=== PATIENT | female | born 1960 | race African-American/Black ===

== ENCOUNTER → 2018-06-30 | Outpatient (CLI) | payer MEDICARE, MEDICAID | END | disposition home or self-care (01) | LOC: US 08:27 | PROVIDERS: ATTEND Internal Medicine Gastroenterology | DX: N28.1 Cyst of kidney, acquired (principal) | CPT/HCPCS: 76700 ==

== ENCOUNTER 2020-02-04 05:22 | Inpatient (IN) | payer MEDICARE, MEDICAID ==
[~2020-02-04] VITALS: Ht 167.6 cm; Wt 85.3 kg
[2020-02-04] VITALS (34 sets, daily range): BP systolic 83–124; BP diastolic 36–87
[~2020-02-04 05:22] MED LIST: LACTATED RINGERS 1,000 ML IV SCH
[2020-02-04 06:31] LABS: CHLORIDE 108 mEq/L (98-107)
[2020-02-04 06:35] LABS: BASOPHILS % 0.6 % (0.0-2.0); EOSINOPHILS % 1.2 % (0.0-5.0); HEMATOCRIT. 36.9 % (36.0-48.0); HEMOGLOBIN. 12.2 g/dL (12.0-16.0); LYMPHOCYTES % 33.1 % (20.0-50.0); MEAN CORPUSCULAR HEMOGLOBIN 30.3 pg (28.0-32.0); MEAN CORPUSCULAR VOLUME 91.9 fL (81.0-99.0); MEAN PLATELET VOLUME 8.2 fl (7.4-10.4); MONOCYTES % 6.6 % (2.0-8.0); NEUTROPHILS % 58.5 % (40.0-76.0); PLATELET 305 x1000/uL (130-400); RED BLOOD CELL COUNT 4.02 mill/uL (4.2-5.4)
[2020-02-04] MEDS ORDERED: LIDOCAINE HCL/EPINEPHRINE 1%-EPI 1:100,000 20 ML VIAL ONE (06:48)
[2020-02-04] MEDS ORDERED: THROMBIN (BOVINE) 5000 UNITS/VIAL TOP ONE ×2 (06:48→09:02)
[2020-02-04] MEDS ORDERED: BACITRACIN 50,000 UNITS/VIAL ONE (06:49)
[2020-02-04] MEDS ORDERED: NEOSTIGMINE METHYLSULFATE 1MG/ML 10 ML VIAL ONE (06:54)
[2020-02-04] MEDS ORDERED: PROPOFOL 200MG/20ML VIAL IV ONE (06:54)
[2020-02-04] MEDS ORDERED: MIDAZOLAM HCL 2 MG/2 ML VIAL ONE (06:54)
[2020-02-04] MEDS ORDERED: FENTANYL CITRATE/PF 50MCG/ML 2ML VIAL ONE (06:54)
[2020-02-04] MEDS ORDERED: ROCURONIUM BROMIDE 10MG/ML VIAL 5ML IV ONE (06:54)
[2020-02-04] MEDS ORDERED: GLYCOPYRROLATE 0.2 MG/ML 2ML VIAL ONE ×2 (06:55→10:05)
[2020-02-04 06:57] LABS: INR 0.9; PARTIAL THROMBOPLASTIN TIME 25.6 sec (23.4-31.0)
[2020-02-04] MEDS ORDERED: OXYCODONE HCL/ACETAMINOPHEN 5/325MG TABLET PO PRN (07:15)
[2020-02-04] MEDS ORDERED: NICARDIPINE 100 MG in SODIUM CHLORIDE 0.9% 60 ML IV PRN (07:15)
[2020-02-04] MEDS ORDERED: ONDANSETRON HCL 4MG/2ML INJ IV PRN ×2 (07:15→08:45)
[2020-02-04] MEDS ORDERED: CLINDAMYCIN 900 MG PREMIX 50 ML IV ONE (07:41)
[2020-02-04] MEDS ORDERED: DEXAMETHASONE 4MG/ML 1ML VIAL ONE (08:24)
[2020-02-04] MEDS ORDERED: HYDROMORPHONE HCL/PF 2MG/ML (OR) ONE (08:34)
[2020-02-04] MEDS ORDERED: LABETALOL 5MG/ML SYR 20 MG/4 ML SYRINGE IV PRN (08:45)
[2020-02-04] MEDS ORDERED: HYDROMORPHONE HCL/PF 2MG/ML CPJ IV PRN (08:45)
[2020-02-04] MEDS ORDERED: MEPERIDINE HCL/PF 25MG/ML CPJ IV PRN (08:45)
[2020-02-04] MEDS ORDERED: VALS80TA30 PO (10:35)
[2020-02-04] MEDS ORDERED: NAP5EC PO (10:35)
[2020-02-04] MEDS ORDERED: METO100T16 PO (10:35)
[2020-02-04] MEDS ORDERED: LORA10CA PO (10:35)
[2020-02-04] MEDS ORDERED: AMLO5TAB88 PO (10:35)
[2020-02-04] MEDS ORDERED: GABA-531 PO (10:35)
[2020-02-04] MEDS ORDERED: FLUT9.9S NS (10:35)
[2020-02-04] MEDS ORDERED: HYDR-3281 PO (10:35)
[2020-02-04] MEDS ORDERED: ASPI-1497 PO (10:35)
[2020-02-04] MEDS ORDERED: NALOXONE INJ IV PRN (11:00)
[2020-02-04] MEDS: DEXT 5%/LACTATED RINGERS 1,000 ML IV SCH ×2 (11:08→18:13)
[2020-02-04] MEDS: HYDROMORPHONE PCA 10MG/50ML IV PRN (11:36)
[2020-02-04] MEDS ORDERED: IPRATROPIUM/ALBUTEROL 0.5-3(2.5)MG/3ML NEB HHN PRN (12:15)
[2020-02-04] MEDS: LORATADINE 10MG TABLET PO SCH (13:02)
[2020-02-04] MEDS: IPRATROPIUM/ALBUTEROL 0.5-3(2.5)MG/3ML NEB HHN SCH ×2 (13:36→20:21)
[2020-02-04] MEDS: CLINDAMYCIN 600 MG in DEXTROSE 5% WATER 50 ML IV SCH (16:25)
[2020-02-04] MEDS ORDERED: INFLUENZA VIRUS VACCINE(AFLURIA) 0.5ML SYR IM ONE (18:30)
[2020-02-04] MEDS ORDERED: PNEUMOCOCCAL 23-VAL P-SAC VAC 0.5 ML IM ONE (18:30)
[2020-02-04] MEDS: FLUTICASONE PROPIONATE 50MCG/SPRAY BOTTLE BOTHNSTRLS SCH (21:19)
[2020-02-05] VITALS (89 sets, daily range): BP systolic 67–147; BP diastolic 26–95
[2020-02-05] MEDS: CLINDAMYCIN 600 MG in DEXTROSE 5% WATER 50 ML IV SCH ×3 (01:12→16:40)
[2020-02-05] MEDS: IPRATROPIUM/ALBUTEROL 0.5-3(2.5)MG/3ML NEB HHN SCH ×4 (02:29→21:18)
[2020-02-05] MEDS: DEXT 5%/LACTATED RINGERS 1,000 ML IV SCH ×2 (02:45→10:58)
[2020-02-05 05:39] LABS: BASOPHILS % 0.2 % (0.0-2.0); HEMATOCRIT. 30.8 % (36.0-48.0); HEMOGLOBIN. 10.2 g/dL (12.0-16.0); LYMPHOCYTES % 14.8 % (20.0-50.0); MEAN CORPUSCULAR HEMOGLOBIN 30.3 pg (28.0-32.0); MEAN CORPUSCULAR VOLUME 91.5 fL (81.0-99.0); MEAN PLATELET VOLUME 9.2 fl (7.4-10.4); MONOCYTES % 5.9 % (2.0-8.0); NEUTROPHILS % 79.1 % (40.0-76.0); PLATELET 226 x1000/uL (130-400); RED BLOOD CELL COUNT 3.37 mill/uL (4.2-5.4); RED CELL DISTRIBUTION WIDTH 14.6 % (11.6-14.6)
[2020-02-05 05:49] LABS: CHLORIDE 108 mEq/L (98-107)
[2020-02-05] MEDS: FLUTICASONE PROPIONATE 50MCG/SPRAY BOTTLE BOTHNSTRLS SCH ×2 (08:05→20:16)
[2020-02-05] MEDS: LORATADINE 10MG TABLET PO SCH (08:05)
[2020-02-05] MEDS ORDERED: ACETAMINOPHEN 325MG TABLET PO PRN (11:45)
[2020-02-05] MEDS ORDERED: DOCUSATE SODIUM 250MG CAPSULE PO NR (11:45)
[2020-02-05] MEDS: SODIUM CHLORIDE 0.45% 1,000 ML IV SCH ×2 (12:00→20:16)
[2020-02-05] MEDS: LIDOCAINE 5% PATCH TOP SCH (14:11)
[2020-02-05 15:46] LABS: CLARITY URINE CLEAR (CLEAR); COLOR URINE YELLOW (YELLOW); KETONES URINE NEGATIVE (NEGATIVE); LEUKOCYTE ESTERASE URINE NEGATIVE (NEGATIVE); NITRITE URINE NEGATIVE (NEGATIVE); OCCULT BLOOD URINE NEGATIVE (NEGATIVE); PROTEIN URINE NEGATIVE (NEGATIVE); SPECIFIC GRAVITY URINE 1.009 (1.005-1.030); UROBILINOGEN URINE 0.2 E.U./dL (0.2-1.0)
[2020-02-05] MEDS ORDERED: SODIUM CHLORIDE 0.9% 500 ML IV ONE (17:00)
[2020-02-05] MEDS: OXYCODONE HCL/ACETAMINOPHEN 5/325MG TABLET PO PRN (17:46)
[2020-02-05] MEDS: HYDROMORPHONE PCA 10MG/50ML IV PRN (21:22)
[2020-02-06] VITALS (45 sets, daily range): BP systolic 99–160; BP diastolic 57–95
[2020-02-06] MEDS: IPRATROPIUM/ALBUTEROL 0.5-3(2.5)MG/3ML NEB HHN SCH ×4 (02:30→19:55)
[2020-02-06] MEDS: OXYCODONE HCL/ACETAMINOPHEN 5/325MG TABLET PO PRN ×3 (03:20→20:28)
[2020-02-06] MEDS: SODIUM CHLORIDE 0.45% 1,000 ML IV SCH ×3 (03:45→19:45)
[2020-02-06 06:05] LABS: BASOPHILS % 0.4 % (0.0-2.0); EOSINOPHILS % 0.1 % (0.0-5.0); HEMATOCRIT. 26.2 % (36.0-48.0); HEMOGLOBIN. 8.7 g/dL (12.0-16.0); LYMPHOCYTES % 13.2 % (20.0-50.0); MEAN CORPUSCULAR HEMOGLOBIN 30.1 pg (28.0-32.0); MEAN CORPUSCULAR VOLUME 91.4 fL (81.0-99.0); MEAN PLATELET VOLUME 8.8 fl (7.4-10.4); MONOCYTES % 7.1 % (2.0-8.0); NEUTROPHILS % 79.2 % (40.0-76.0); PLATELET 197 x1000/uL (130-400); RED BLOOD CELL COUNT 2.87 mill/uL (4.2-5.4); RED CELL DISTRIBUTION WIDTH 14.7 % (11.6-14.6)
[2020-02-06 06:16] LABS: CHLORIDE 106 mEq/L (98-107)
[2020-02-06] MEDS ORDERED: LACTULOSE 20G/30ML UDC PO PRN (09:30)
[2020-02-06] MEDS: LORATADINE 10MG TABLET PO SCH (09:55)
[2020-02-06] MEDS: DOCUSATE SODIUM 250MG CAPSULE PO SCH (09:56)
[2020-02-06] MEDS: DULOXETINE HCL 30MG DR CAPSULE PO SCH (09:56)
[2020-02-06] MEDS: FLUTICASONE PROPIONATE 50MCG/SPRAY BOTTLE BOTHNSTRLS SCH ×2 (09:56→20:32)
[2020-02-06] MEDS: LOSARTAN POTASSIUM 50 MG TABLET PO SCH (09:56)
[2020-02-06] MEDS: LIDOCAINE 5% PATCH TOP SCH (09:57)
[2020-02-07] VITALS: BP 119/74
[2020-02-07] MEDS: IPRATROPIUM/ALBUTEROL 0.5-3(2.5)MG/3ML NEB HHN SCH ×4 (01:12→21:19)
[2020-02-07 04:00] VITALS: BP 121/72
[2020-02-07] MEDS: ONDANSETRON INJ IV PRN ×2 (04:57→18:30)
[2020-02-07] MEDS: SODIUM CHLORIDE 0.45% 1,000 ML IV SCH ×3 (05:03→21:28)
[2020-02-07 06:55] LABS: BASOPHILS % 0.2 % (0.0-2.0); HEMATOCRIT. 27.8 % (36.0-48.0); HEMOGLOBIN. 9.2 g/dL (12.0-16.0); LYMPHOCYTES % 12.2 % (20.0-50.0); MEAN CORPUSCULAR HEMOGLOBIN 30.5 pg (28.0-32.0); MEAN CORPUSCULAR VOLUME 92.3 fL (81.0-99.0); MEAN PLATELET VOLUME 9.5 fl (7.4-10.4); NEUTROPHILS % 80.6 % (40.0-76.0); PLATELET 167 x1000/uL (130-400); RED BLOOD CELL COUNT 3.01 mill/uL (4.2-5.4); RED CELL DISTRIBUTION WIDTH 14.2 % (11.6-14.6)
[2020-02-07 07:11] LABS: CHLORIDE 106 mEq/L (98-107)
[2020-02-07 08:00] VITALS: BP 114/68
[2020-02-07] MEDS ORDERED: LACTULOSE 20G/30ML UDC PO PRN (08:45)
[2020-02-07] MEDS ORDERED: PANTOPRAZOLE 40MG DR TABLET PO NR (08:45)
[2020-02-07] MEDS: DOCUSATE SODIUM 250MG CAPSULE PO SCH (08:46)
[2020-02-07] MEDS: DULOXETINE HCL 30MG DR CAPSULE PO SCH (08:46)
[2020-02-07] MEDS: LORATADINE 10MG TABLET PO SCH (08:46)
[2020-02-07] MEDS: FLUTICASONE PROPIONATE 50MCG/SPRAY BOTTLE BOTHNSTRLS SCH (08:47)
[2020-02-07] MEDS: LIDOCAINE 5% PATCH TOP SCH (08:47)
[2020-02-07] MEDS: LOSARTAN POTASSIUM 50 MG TABLET PO SCH (08:47)
[2020-02-07] MEDS: OXYCODONE HCL/ACETAMINOPHEN 5/325MG TABLET PO PRN ×2 (09:32→15:51)
[2020-02-07 10:27] LABS: TOTAL IRON BINDING CAPACITY 276 ug/dL (250-450)
[2020-02-07 12:00] VITALS: BP 105/65
[2020-02-07 16:00] VITALS: BP 119/80
[2020-02-07 20:00] VITALS: BP 125/75
[2020-02-08] VITALS (7 sets, daily range): BP systolic 19–126; BP diastolic 71–111
[2020-02-08] MEDS: OXYCODONE HCL/ACETAMINOPHEN 5/325MG TABLET PO PRN ×3 (01:11→15:00)
[2020-02-08] MEDS: IPRATROPIUM/ALBUTEROL 0.5-3(2.5)MG/3ML NEB HHN SCH ×3 (01:56→14:11)
[2020-02-08] MEDS: SODIUM CHLORIDE 0.45% 1,000 ML IV SCH (05:45)
[2020-02-08] MEDS: MORPHINE SULFATE 4 MG/ML CPJ (NOT FOR IM USE) IV PRN ×3 (06:21→16:33)
[2020-02-08 07:13] LABS: BASOPHILS % 0.5 % (0.0-2.0); HEMATOCRIT. 27.9 % (36.0-48.0); HEMOGLOBIN. 9.4 g/dL (12.0-16.0); LYMPHOCYTES % 22.5 % (20.0-50.0); MEAN CORPUSCULAR HEMOGLOBIN 30.7 pg (28.0-32.0); MEAN PLATELET VOLUME 8.3 fl (7.4-10.4); MONOCYTES % 6.6 % (2.0-8.0); NEUTROPHILS % 68.4 % (40.0-76.0); PLATELET 226 x1000/uL (130-400); RED BLOOD CELL COUNT 3.07 mill/uL (4.2-5.4); RED CELL DISTRIBUTION WIDTH 13.9 % (11.6-14.6)
[2020-02-08] MEDS ORDERED: PANTOPRAZOLE 40MG DR TABLET PO SCH (07:20)
[2020-02-08] MEDS: DOCUSATE SODIUM 250MG CAPSULE PO SCH (08:53)
[2020-02-08] MEDS: LOSARTAN POTASSIUM 50 MG TABLET PO SCH (08:53)
[2020-02-08] MEDS: LIDOCAINE 5% PATCH TOP SCH (08:53)
[2020-02-08] MEDS: DULOXETINE HCL 30MG DR CAPSULE PO SCH (08:54)
[2020-02-08] MEDS: LORATADINE 10MG TABLET PO SCH (08:54)
[2020-02-08] MEDS ORDERED: DULOXETINE HCL 30MG DR CAPSULE PO SCH (10:30)
[2020-02-08] MEDS ORDERED: SORBITOL 70% SOLN 30ML PO NR (11:30)
[2020-02-08] MEDS ORDERED: NA PHOS,M-B/NA PHOS,DI-BA ENEMA 118ML PR NR (11:30)
[2020-02-08] MEDS ORDERED: FERROUS SULFATE 325MG TABLET PO SCH (17:00)
[2020-02-08] MEDS ORDERED: SENNOSIDES/DOCUSATE SOD 8.6/50MG TABLET PO SCH (21:00)
== END 2020-02-08 16:45 | DRG 453 ==
LOC: OR 05:22 → MICUSO 05:23 → 6EST 02-06 11:27
PROVIDERS: ADMIT Neurological Surgery; ATTEND Neurological Surgery
PROC: 0SG00AJ Fusion of Lumbar Vertebral Joint with Interbody Fusion Device, Posterior Approach, Anterior Column, Open Approach (ICD-10-PCS; principal; 2020-02-04)
PROC: 0SG0071 Fusion of Lumbar Vertebral Joint with Autologous Tissue Substitute, Posterior Approach, Posterior Column, Open Approach (ICD-10-PCS; 2020-02-04)
PROC: 00NY0ZZ Release Lumbar Spinal Cord, Open Approach (ICD-10-PCS; 2020-02-04)
PROC: 0ST20ZZ Resection of Lumbar Vertebral Disc, Open Approach (ICD-10-PCS; 2020-02-04)
PROC: 5A09357 Assistance with Respiratory Ventilation, Less than 24 Consecutive Hours, Continuous Positive Airway Pressure (ICD-10-PCS; 2020-02-07)
DX: M43.16 Spondylolisthesis, lumbar region (principal); G82.50 Quadriplegia, unspecified; M47.16 Other spondylosis with myelopathy, lumbar region; N39.0 Urinary tract infection, site not specified; M48.061 Spinal stenosis, lumbar region without neurogenic claudication; I10 Essential (primary) hypertension; G47.33 Obstructive sleep apnea (adult) (pediatric); J32.8 Other chronic sinusitis; I95.9 Hypotension, unspecified; M19.90 Unspecified osteoarthritis, unspecified site; K21.9 Gastro-esophageal reflux disease without esophagitis; F32.9 Major depressive disorder, single episode, unspecified; D72.829 Elevated white blood cell count, unspecified; D50.9 Iron deficiency anemia, unspecified; K59.00 Constipation, unspecified; J30.9 Allergic rhinitis, unspecified; R26.89 Other abnormalities of gait and mobility; Z90.49 Acquired absence of other specified parts of digestive tract; M54.16 Radiculopathy, lumbar region
CPT/HCPCS: 36415; 71045; 72100; 76000; 80048; 81003; 83540; 83550; 85025; 86850; 86900; 88304; 88311; 93970; 94640; 94660; 97116; 97163; 97166; 97530; 97535; 97760; J1100; J1170; J2250; J2270; J2405; J2704; J2710; J3010; J3490; J7060; J7121

== ENCOUNTER 2020-02-08 16:49 | Inpatient (IN) | payer MEDICARE, MEDICAID ==
[~2020-02-08] VITALS: Ht 167.6 cm; Wt 88.9 kg
[~2020-02-08 16:49] MED LIST changes: +AMLO5TAB88 PO; +ASPI-1497 PO; +FLUT9.9S NS; +GABA-531 PO; +HYDR-3281 PO; -LACTATED RINGERS 1,000 ML IV SCH; +LORA10CA PO; +METO100T16 PO; +NAP5EC PO; +VALS80TA30 PO
[2020-02-08 16:50] VITALS: BP 115/75
[2020-02-08] MEDS ORDERED: BISACODYL 10MG SUPP PR PRN (18:00)
[2020-02-08] MEDS ORDERED: NA PHOS,M-B/NA PHOS,DI-BA ENEMA 118ML PR PRN ×2 (18:00→19:00)
[2020-02-08] MEDS ORDERED: LACTULOSE 20G/30ML UDC PO PRN (18:30)
[2020-02-08] MEDS ORDERED: NALOXONE HCL 1 MG/ML 2ML VIAL IV PRN (18:30)
[2020-02-08] MEDS ORDERED: IPRATROPIUM/ALBUTEROL 0.5-3(2.5)MG/3ML NEB HHN PRN (18:30)
[2020-02-08] MEDS ORDERED: MORPHINE SULFATE 4 MG/ML CPJ (NOT FOR IM USE) IV PRN (18:30)
[2020-02-08] MEDS ORDERED: ONDANSETRON HCL 4MG/2ML INJ IV PRN (18:30)
[2020-02-08 20:00] VITALS: BP 138/92
[2020-02-08] MEDS ORDERED: LACTULOSE 20G/30ML UDC PO SCH (21:00)
[2020-02-08] MEDS: OXYCODONE HCL/ACETAMINOPHEN 5/325MG TABLET PO PRN (21:34)
[2020-02-08] MEDS: AMLODIPINE 5MG TABLET PO SCH (22:29)
[2020-02-08] MEDS: SENNOSIDES/DOCUSATE SOD 8.6/50MG TABLET PO SCH (22:29)
[2020-02-08] MEDS: LACTULOSE 20G/30ML UDC PO SCH ×2 (22:29→23:53)
[2020-02-08] MEDS: METOPROLOL TARTRATE 100MG TABLET PO SCH (22:30)
[2020-02-09] MEDS ORDERED: IPRATROPIUM/ALBUTEROL 0.5-3(2.5)MG/3ML NEB HHN SCH
[2020-02-09] MEDS: OXYCODONE HCL/ACETAMINOPHEN 5/325MG TABLET PO PRN ×3 (03:21→16:54)
[2020-02-09] MEDS: LACTULOSE 20G/30ML UDC PO SCH (06:15)
[2020-02-09] MEDS: PANTOPRAZOLE 40MG DR TABLET PO SCH (06:15)
[2020-02-09 08:16] VITALS: BP 119/78
[2020-02-09] MEDS: LIDOCAINE 5% PATCH TOP SCH (08:37)
[2020-02-09] MEDS: DOCUSATE SODIUM 250MG CAPSULE PO SCH (08:38)
[2020-02-09] MEDS: FERROUS SULFATE 325MG TABLET PO SCH ×2 (08:38→16:47)
[2020-02-09] MEDS: LORATADINE 10MG TABLET PO SCH (08:38)
[2020-02-09] MEDS: DULOXETINE HCL 60MG DR CAPSULE PO SCH (08:38)
[2020-02-09] MEDS: LOSARTAN POTASSIUM 50 MG TABLET PO SCH (08:40)
[2020-02-09] MEDS ORDERED: INFLUENZA VIRUS VACCINE(AFLURIA) 0.5ML SYR IM ONE (09:00)
[2020-02-09] MEDS ORDERED: PNEUMOCOCCAL 23-VAL P-SAC VAC 0.5 ML IM ONE (09:00)
[2020-02-09] MEDS: METOPROLOL TARTRATE 100MG TABLET PO SCH ×2 (09:00→20:45)
[2020-02-09] MEDS: AMLODIPINE 5MG TABLET PO SCH (09:00)
[2020-02-09] MEDS ORDERED: MORPHINE SULFATE 4 MG/ML CPJ (NOT FOR IM USE) IV PRN (11:15)
[2020-02-09 20:00] VITALS: BP 103/60
[2020-02-09] MEDS: ACETAMINOPHEN 650MG/20.3ML UDC PO PRN (20:47)
[2020-02-09] MEDS: SENNOSIDES/DOCUSATE SOD 8.6/50MG TABLET PO SCH (20:47)
[2020-02-10] MEDS: OXYCODONE HCL/ACETAMINOPHEN 5/325MG TABLET PO PRN ×4 (00:52→16:09)
[2020-02-10] MEDS: ACETAMINOPHEN 650MG/20.3ML UDC PO PRN (05:14)
[2020-02-10] MEDS: PANTOPRAZOLE 40MG DR TABLET PO SCH (06:47)
[2020-02-10 08:00] VITALS: BP 113/71
[2020-02-10] MEDS: LIDOCAINE 5% PATCH TOP SCH (11:04)
[2020-02-10] MEDS: DULOXETINE HCL 60MG DR CAPSULE PO SCH (11:05)
[2020-02-10] MEDS: LORATADINE 10MG TABLET PO SCH (11:05)
[2020-02-10] MEDS: DOCUSATE SODIUM 250MG CAPSULE PO SCH (11:05)
[2020-02-10] MEDS: AMLODIPINE 5MG TABLET PO SCH (11:06)
[2020-02-10] MEDS: LOSARTAN POTASSIUM 50 MG TABLET PO SCH (11:06)
[2020-02-10] MEDS: METOPROLOL TARTRATE 100MG TABLET PO SCH ×2 (11:07→21:00)
[2020-02-10] MEDS: FERROUS SULFATE 325MG TABLET PO SCH ×2 (11:07→17:53)
[2020-02-10] MEDS ORDERED: BACLOFEN 10MG TABLET PO PRN (18:15)
[2020-02-10 20:00] VITALS: BP 142/54
[2020-02-10] MEDS: SENNOSIDES/DOCUSATE SOD 8.6/50MG TABLET PO SCH (21:10)
[2020-02-10] MEDS: BACLOFEN 10MG TABLET PO SCH (21:13)
[2020-02-11] MEDS: OXYCODONE HCL/ACETAMINOPHEN 5/325MG TABLET PO PRN ×3 (00:08→18:14)
[2020-02-11] MEDS: PANTOPRAZOLE 40MG DR TABLET PO SCH (06:22)
[2020-02-11 08:00] VITALS: BP 127/85
[2020-02-11 08:14] LABS: BASOPHILS % 0.7 % (0.0-2.0); EOSINOPHILS % 3.2 % (0.0-5.0); HEMOGLOBIN. 9.7 g/dL (12.0-16.0); LYMPHOCYTES % 23.5 % (20.0-50.0); MEAN CORPUSCULAR VOLUME 90.1 fL (81.0-99.0); MEAN PLATELET VOLUME 7.6 fl (7.4-10.4); MONOCYTES % 9.1 % (2.0-8.0); NEUTROPHILS % 63.5 % (40.0-76.0); PLATELET 325 x1000/uL (130-400); RED BLOOD CELL COUNT 3.22 mill/uL (4.2-5.4); RED CELL DISTRIBUTION WIDTH 13.7 % (11.6-14.6)
[2020-02-11 08:26] LABS: CHLORIDE 103 mEq/L (98-107)
[2020-02-11] MEDS: METOPROLOL TARTRATE 100MG TABLET PO SCH ×2 (08:45→21:00)
[2020-02-11] MEDS: FERROUS SULFATE 325MG TABLET PO SCH ×2 (08:45→17:47)
[2020-02-11] MEDS: LOSARTAN POTASSIUM 50 MG TABLET PO SCH (08:46)
[2020-02-11] MEDS: DULOXETINE HCL 60MG DR CAPSULE PO SCH (08:46)
[2020-02-11] MEDS: AMLODIPINE 5MG TABLET PO SCH (08:46)
[2020-02-11] MEDS: DOCUSATE SODIUM 250MG CAPSULE PO SCH (08:46)
[2020-02-11] MEDS: LORATADINE 10MG TABLET PO SCH (08:46)
[2020-02-11] MEDS: LIDOCAINE 5% PATCH TOP SCH (12:22)
[2020-02-11] MEDS: BISACODYL 5MG TABLET PO PRN (15:33)
[2020-02-11 18:08] VITALS: BP 132/77
[2020-02-11 20:00] VITALS: BP 101/59
[2020-02-11] MEDS: BACLOFEN 10MG TABLET PO SCH (21:35)
[2020-02-11] MEDS: SENNOSIDES/DOCUSATE SOD 8.6/50MG TABLET PO SCH (21:37)
[2020-02-12] MEDS: ACETAMINOPHEN 650MG/20.3ML UDC PO PRN ×2 (02:08→13:42)
[2020-02-12] MEDS: PANTOPRAZOLE 40MG DR TABLET PO SCH (06:12)
[2020-02-12 08:00] VITALS: BP 106/70
[2020-02-12] MEDS: LIDOCAINE 5% PATCH TOP SCH ×2 (08:21→09:00)
[2020-02-12] MEDS: OXYCODONE HCL/ACETAMINOPHEN 5/325MG TABLET PO PRN ×2 (08:21→21:02)
[2020-02-12] MEDS: METOPROLOL TARTRATE 100MG TABLET PO SCH ×2 (08:21→21:00)
[2020-02-12] MEDS: DOCUSATE SODIUM 250MG CAPSULE PO SCH (08:22)
[2020-02-12] MEDS: LOSARTAN POTASSIUM 50 MG TABLET PO SCH (08:22)
[2020-02-12] MEDS: AMLODIPINE 5MG TABLET PO SCH (08:22)
[2020-02-12] MEDS: FERROUS SULFATE 325MG TABLET PO SCH ×2 (08:22→16:36)
[2020-02-12] MEDS: LORATADINE 10MG TABLET PO SCH (08:22)
[2020-02-12] MEDS: DULOXETINE HCL 60MG DR CAPSULE PO SCH (08:58)
[2020-02-12] MEDS ORDERED: DEXT 5%/0.45% NACL 1000ML 1,000 ML IV SCH (18:30)
[2020-02-12 20:00] VITALS: BP 114/70
[2020-02-12] MEDS: BACLOFEN 10MG TABLET PO SCH (20:59)
[2020-02-12] MEDS: SENNOSIDES/DOCUSATE SOD 8.6/50MG TABLET PO SCH (21:00)
[2020-02-13] MEDS: OXYCODONE HCL/ACETAMINOPHEN 5/325MG TABLET PO PRN ×3 (03:29→17:07)
[2020-02-13] MEDS: PANTOPRAZOLE 40MG DR TABLET PO SCH (07:05)
[2020-02-13 08:27] VITALS: BP 111/65
[2020-02-13] MEDS: AMLODIPINE 5MG TABLET PO SCH (09:00)
[2020-02-13] MEDS: DOCUSATE SODIUM 250MG CAPSULE PO SCH (09:00)
[2020-02-13] MEDS: FERROUS SULFATE 325MG TABLET PO SCH ×2 (09:31→17:07)
[2020-02-13] MEDS: METOPROLOL TARTRATE 100MG TABLET PO SCH ×2 (09:32→21:00)
[2020-02-13] MEDS: LOSARTAN POTASSIUM 50 MG TABLET PO SCH (09:32)
[2020-02-13] MEDS: DULOXETINE HCL 60MG DR CAPSULE PO SCH (09:32)
[2020-02-13] MEDS: LORATADINE 10MG TABLET PO SCH (09:32)
[2020-02-13] MEDS: LIDOCAINE 5% PATCH TOP SCH (09:33)
[2020-02-13] MEDS: ACETAMINOPHEN 650MG/20.3ML UDC PO PRN (14:48)
[2020-02-13 19:09] LABS: CLARITY URINE CLOUDY (CLEAR); COLOR URINE YELLOW (YELLOW); KETONES URINE NEGATIVE (NEGATIVE); LEUKOCYTE ESTERASE URINE NEGATIVE (NEGATIVE); NITRITE URINE NEGATIVE (NEGATIVE); OCCULT BLOOD URINE NEGATIVE (NEGATIVE); PROTEIN URINE NEGATIVE (NEGATIVE); SPECIFIC GRAVITY URINE 1.017 (1.005-1.030); UROBILINOGEN URINE 0.2 E.U./dL (0.2-1.0)
[2020-02-13 20:00] VITALS: BP 99/57
[2020-02-13] MEDS ORDERED: PREGABALIN 50 MG CAPSULE PO SCH (21:00)
[2020-02-13] MEDS: BACLOFEN 10MG TABLET PO SCH (22:29)
[2020-02-13] MEDS: SENNOSIDES/DOCUSATE SOD 8.6/50MG TABLET PO SCH (22:29)
[2020-02-14] MEDS: OXYCODONE HCL/ACETAMINOPHEN 5/325MG TABLET PO PRN ×3 (06:22→19:54)
[2020-02-14 08:08] VITALS: BP 108/68
[2020-02-14] MEDS: LOSARTAN POTASSIUM 50 MG TABLET PO SCH (09:00)
[2020-02-14] MEDS: AMLODIPINE 5MG TABLET PO SCH (09:00)
[2020-02-14] MEDS: METOPROLOL TARTRATE 100MG TABLET PO SCH ×2 (09:00→21:05)
[2020-02-14] MEDS: DOCUSATE SODIUM 250MG CAPSULE PO SCH (09:02)
[2020-02-14] MEDS: FERROUS SULFATE 325MG TABLET PO SCH ×2 (09:02→17:13)
[2020-02-14] MEDS: LORATADINE 10MG TABLET PO SCH (09:02)
[2020-02-14] MEDS: DULOXETINE HCL 60MG DR CAPSULE PO SCH (09:02)
[2020-02-14] MEDS: FAMOTIDINE 20MG TABLET PO SCH ×2 (09:03→21:06)
[2020-02-14] MEDS: LIDOCAINE 5% PATCH TOP SCH (09:04)
[2020-02-14 13:00] VITALS: BP 131/76
[2020-02-14 20:00] VITALS: BP 110/69
[2020-02-14] MEDS: BACLOFEN 10MG TABLET PO SCH (21:04)
[2020-02-14] MEDS: SENNOSIDES/DOCUSATE SOD 8.6/50MG TABLET PO SCH (21:06)
[2020-02-14] MEDS: PREGABALIN 75MG CAPSULE PO SCH (21:29)
[2020-02-15] MEDS: OXYCODONE HCL/ACETAMINOPHEN 5/325MG TABLET PO PRN ×3 (06:13→19:39)
[2020-02-15 06:48] LABS: BASOPHILS % 0.9 % (0.0-2.0); EOSINOPHILS % 5.5 % (0.0-5.0); LYMPHOCYTES % 34.6 % (20.0-50.0); MEAN CORPUSCULAR HEMOGLOBIN 30.1 pg (28.0-32.0); MEAN PLATELET VOLUME 7.2 fl (7.4-10.4); MONOCYTES % 8.5 % (2.0-8.0); NEUTROPHILS % 50.5 % (40.0-76.0); PLATELET 429 x1000/uL (130-400); RED BLOOD CELL COUNT 3.33 mill/uL (4.2-5.4); RED CELL DISTRIBUTION WIDTH 14.1 % (11.6-14.6)
[2020-02-15 07:00] VITALS: BP 109/57
[2020-02-15 07:10] LABS: CHLORIDE 107 mEq/L (98-107)
[2020-02-15] MEDS: DULOXETINE HCL 60MG DR CAPSULE PO SCH (08:23)
[2020-02-15] MEDS: FERROUS SULFATE 325MG TABLET PO SCH ×2 (08:24→17:28)
[2020-02-15] MEDS: BISACODYL 5MG TABLET PO PRN (08:24)
[2020-02-15] MEDS: DOCUSATE SODIUM 250MG CAPSULE PO SCH (08:24)
[2020-02-15] MEDS: LORATADINE 10MG TABLET PO SCH (08:24)
[2020-02-15] MEDS: FAMOTIDINE 20MG TABLET PO SCH ×2 (08:24→20:47)
[2020-02-15] MEDS: LOSARTAN POTASSIUM 50 MG TABLET PO SCH (08:25)
[2020-02-15] MEDS: METOPROLOL TARTRATE 100MG TABLET PO SCH ×2 (08:25→20:47)
[2020-02-15] MEDS: LIDOCAINE 5% PATCH TOP SCH (08:25)
[2020-02-15] MEDS: AMLODIPINE 5MG TABLET PO SCH (08:26)
[2020-02-15] MEDS ORDERED: BACL-141 PO (10:25)
[2020-02-15] MEDS ORDERED: DULO60CA44 PO (10:25)
[2020-02-15] MEDS ORDERED: FERR325T23 PO (10:25)
[2020-02-15] MEDS ORDERED: CLAR10 PO (10:25)
[2020-02-15] MEDS ORDERED: ACET650S25 PO (10:25)
[2020-02-15] MEDS ORDERED: METO100T16 PO (10:25)
[2020-02-15] MEDS ORDERED: AMLO5TAB88 PO (10:25)
[2020-02-15] MEDS ORDERED: LIDO700A30 TOP (10:25)
[2020-02-15] MEDS ORDERED: DOCU250C14 PO (10:25)
[2020-02-15] MEDS ORDERED: LOSA50TA3 PO (10:25)
[2020-02-15] MEDS ORDERED: INFLUENZA VIRUS VACCINE(AFLURIA) 0.5ML SYR IM ONE (10:45)
[2020-02-15] MEDS ORDERED: PNEUMOCOCCAL 23-VAL P-SAC VAC 0.5 ML IM ONE (10:45)
[2020-02-15 13:00] VITALS: BP 114/67
[2020-02-15 20:00] VITALS: BP 104/66
[2020-02-15] MEDS: BACLOFEN 10MG TABLET PO SCH (20:46)
[2020-02-15] MEDS: SENNOSIDES/DOCUSATE SOD 8.6/50MG TABLET PO SCH (20:47)
[2020-02-15] MEDS: PREGABALIN 75MG CAPSULE PO SCH (20:47)
[2020-02-16] MEDS: OXYCODONE HCL/ACETAMINOPHEN 5/325MG TABLET PO PRN ×2 (04:47→10:49)
[2020-02-16 08:35] VITALS: BP 93/56
[2020-02-16] MEDS: METOPROLOL TARTRATE 100MG TABLET PO SCH (09:00)
[2020-02-16] MEDS: LOSARTAN POTASSIUM 50 MG TABLET PO SCH (09:00)
[2020-02-16] MEDS: AMLODIPINE 5MG TABLET PO SCH (09:00)
[2020-02-16] MEDS: LORATADINE 10MG TABLET PO SCH (09:54)
[2020-02-16] MEDS: FAMOTIDINE 20MG TABLET PO SCH (09:54)
[2020-02-16] MEDS: DULOXETINE HCL 60MG DR CAPSULE PO SCH (09:54)
[2020-02-16] MEDS: DOCUSATE SODIUM 250MG CAPSULE PO SCH (09:54)
[2020-02-16] MEDS: FERROUS SULFATE 325MG TABLET PO SCH (09:54)
[2020-02-16] MEDS: LIDOCAINE 5% PATCH TOP SCH (09:57)
[2020-02-16 13:36] VITALS: BP 105/61
== END 2020-02-16 14:25 | disposition home health service (06) | DRG 552 ==
PROVIDERS: ADMIT Psychiatry & Neurology Neurology; ATTEND Internal Medicine Geriatric Medicine
DX: M47.16 Other spondylosis with myelopathy, lumbar region (principal); G95.9 Disease of spinal cord, unspecified; G82.20 Paraplegia, unspecified; G47.33 Obstructive sleep apnea (adult) (pediatric); K21.9 Gastro-esophageal reflux disease without esophagitis; G89.4 Chronic pain syndrome; F41.9 Anxiety disorder, unspecified; F32.9 Major depressive disorder, single episode, unspecified; J30.9 Allergic rhinitis, unspecified; R73.9 Hyperglycemia, unspecified; M79.609 Pain in unspecified limb; I10 Essential (primary) hypertension; Z60.2 Problems related to living alone; I95.9 Hypotension, unspecified; M19.90 Unspecified osteoarthritis, unspecified site; K59.00 Constipation, unspecified; D72.829 Elevated white blood cell count, unspecified; D50.9 Iron deficiency anemia, unspecified; M43.16 Spondylolisthesis, lumbar region; J32.9 Chronic sinusitis, unspecified; Z88.0 Allergy status to penicillin
CPT/HCPCS: 36415; 80048; 81003; 85025; 90686; 90732; 94660; 97110; 97116; 97162; 97167; 97530; 97535; J2270

== ENCOUNTER 2022-11-24 05:53 | Inpatient (IN) | payer MEDICARE, MEDICAID ==
[2022-11-24] VITALS (25 sets, daily range): BP systolic 71–128; BP diastolic 40–86
[~2022-11-24] VITALS: Ht 172.7 cm; Wt 93.9 kg
[~2022-11-24 05:53] MED LIST changes: +ACET650S25 PO; +ASPI1TAB8 PO; +BACL-141 PO; +CLAR10 PO; +DOCU250C14 PO; +DULO60CA45 PO; +FERR325T23 PO; -GABA-531 PO; -HYDR-3281 PO; +HYDR-4009 MT; +LIDO700A30 TOP; +LOSA50TA3 PO; -NAP5EC PO; +NAPR-1074 MT
[2022-11-24 06:09] LABS: CHLORIDE 108 mEq/L (98-107)
[2022-11-24 06:12] LABS: BASOPHILS % 0.6 % (0.0-2.0); EOSINOPHILS % 1.8 % (0.0-5.0); HEMATOCRIT. 35.7 % (36.0-48.0); HEMOGLOBIN. 11.5 g/dL (12.0-16.0); LYMPHOCYTES % 33.3 % (20.0-50.0); MEAN CORPUSCULAR HEMOGLOBIN 29.4 pg (28.0-32.0); MEAN CORPUSCULAR VOLUME 91.1 fL (81.0-99.0); MEAN PLATELET VOLUME 7.7 fl (7.4-10.4); MONOCYTES % 7.6 % (2.0-8.0); NEUTROPHILS % 56.7 % (40.0-76.0); PLATELET 318 x1000/uL (130-400); RED BLOOD CELL COUNT 3.92 mill/uL (4.2-5.4); RED CELL DISTRIBUTION WIDTH 14.5 % (11.6-14.6)
[2022-11-24] MEDS ORDERED: LACTATED RINGERS 1,000 ML IV SCH (06:15)
[2022-11-24 06:23] LABS: PARTIAL THROMBOPLASTIN TIME 25.7 sec (23.4-31.0); PROTHROMBIN TIME 10.3 sec (9.6-11.0)
[2022-11-24] MEDS ORDERED: LIDOCAINE HCL 1%/EPI 1:200,000 30 ML VIAL ONE (06:35)
[2022-11-24] MEDS ORDERED: GENTAMICIN SULF 40MG/ML 2ML VIAL ONE (06:36)
[2022-11-24] MEDS ORDERED: THROMBIN (BOVINE) 5000 UNITS/VIAL TOP ONE (06:36)
[2022-11-24] MEDS ORDERED: PROPOFOL 200MG/20ML VIAL IV ONE (06:56)
[2022-11-24] MEDS ORDERED: ROCURONIUM BROMIDE 10MG/ML VIAL 5ML IV ONE ×3 (06:56→08:33)
[2022-11-24] MEDS ORDERED: LIDOCAINE HCL 1% 10 MG/ML 10ML VIAL ONE (06:56)
[2022-11-24] MEDS ORDERED: FENTANYL CITRATE/PF 50MCG/ML 2ML VIAL ONE (06:57)
[2022-11-24] MEDS ORDERED: MIDAZOLAM HCL 2 MG/2 ML VIAL ONE (06:57)
[2022-11-24] MEDS ORDERED: CLINDAMYCIN 900 MG PREMIX 50 ML IV ONE (07:29)
[2022-11-24] MEDS ORDERED: DEXT 5%/LACTATED RINGERS 1,000 ML IV SCH (08:00)
[2022-11-24] MEDS ORDERED: PHENYLEPHRINE HCL 10 MG/ML 1ML (IV VIAL) IV ONE (08:05)
[2022-11-24] MEDS ORDERED: [UNRECOGNIZED DRUG - CODE] PO (08:21)
[2022-11-24] MEDS ORDERED: METO100T16 PO (08:21)
[2022-11-24] MEDS ORDERED: PREG75CA PO (08:23)
[2022-11-24] MEDS ORDERED: GABA-290 PO (08:26)
[2022-11-24] MEDS ORDERED: ALBU18HF2 IH (08:28)
[2022-11-24] MEDS ORDERED: ACET-2708 PO (08:30)
[2022-11-24] MEDS ORDERED: TRANEXAMIC ACID 1,000 MG/10 ML IV NR (08:30)
[2022-11-24] MEDS ORDERED: GLYCOPYRROLATE 0.2 MG/ML 2ML VIAL ONE ×2 (09:24)
[2022-11-24] MEDS ORDERED: NEOSTIGMINE METHYLSULFATE 1MG/ML 10 ML VIAL ONE (09:24)
[2022-11-24] MEDS ORDERED: CLINDAMYCIN 300 MG in DEXTROSE 5% WATER 50 ML IV SCH (09:45)
[2022-11-24] MEDS ORDERED: MORPHINE SULFATE 4 MG/ML CPJ (NOT FOR IM USE) IV PRN (09:45)
[2022-11-24] MEDS ORDERED: NALOXONE HCL 0.4MG/ML VIAL IV PRN (10:00)
[2022-11-24] MEDS ORDERED: ONDANSETRON HCL 4MG/2ML INJ IV PRN (10:15)
[2022-11-24] MEDS: HYDROMORPHONE HCL/PF 2MG/ML CPJ IV PRN ×5 (10:18→21:03)
[2022-11-24] MEDS ORDERED: CLONIDINE 0.1MG TABLET PO PRN (10:45)
[2022-11-24] MEDS ORDERED: ACETAMINOPHEN 325MG TABLET PO PRN (10:45)
[2022-11-24] MEDS ORDERED: NICARDIPINE 100 MG in SODIUM CHLORIDE 0.9% 60 ML IV PRN (11:00)
[2022-11-24 13:01] LABS: CLARITY URINE CLEAR (CLEAR); COLOR URINE DARK YELLOW (YELLOW); KETONES URINE NEGATIVE (NEGATIVE); LEUKOCYTE ESTERASE URINE TRACE (NEGATIVE); NITRITE URINE NEGATIVE (NEGATIVE); OCCULT BLOOD URINE NEGATIVE (NEGATIVE); PH URINE 5.5 (4.5-8.0); PROTEIN URINE NEGATIVE (NEGATIVE); SPECIFIC GRAVITY URINE 1.011 (1.005-1.030); UROBILINOGEN URINE 0.2 E.U./dL (0.2-1.0)
[2022-11-24 13:40] LABS: CREATINE KINASE 324 IU/L (26-192)
[2022-11-24] MEDS: HYDROCODONE/ACETAMINOPHEN 7.5/325MG TABLET PO PRN (14:36)
[2022-11-24] MEDS ORDERED: DEXTROSE 50% WATER 50ML SYRINGE IV PRN (15:15)
[2022-11-24] MEDS: DEXT 5%/0.45% NACL 1000ML 1,000 ML IV SCH ×2 (16:28→21:46)
[2022-11-24] MEDS: BLOOD SUGAR DIAGNOSTIC STRIP TEST SCH ×2 (16:30→21:02)
[2022-11-24] MEDS: INSULIN LISPRO 100 UNITS/ML SUBCUT SCH ×2 (17:00→21:00)
[2022-11-24] MEDS ORDERED: IPRATROPIUM/ALBUTEROL 0.5-3(2.5)MG/3ML NEB HHN PRN (18:15)
[2022-11-24 18:38] LABS: HEMATOCRIT 29.9 % (36.0-48.0); HEMOGLOBIN 9.7 g/dL (12.0-16.0); MEAN CORPUSCULAR HEMOGLOBIN 29.5 pg (28.0-32.0); MEAN CORPUSCULAR VOLUME 91.2 fL (81.0-99.0); PLATELET 277 x1000/uL (130-400); RED BLOOD CELL COUNT 3.28 mill/uL (4.2-5.4); RED CELL DISTRIBUTION WIDTH 14.2 % (11.6-14.6)
[2022-11-24] MEDS ORDERED: INFLUENZA VACCINE 05/PF 0.5 ML SYRINGE IM ONE (18:45)
[2022-11-24] MEDS: CLINDAMYCIN 300 MG PREMIX 50 ML IV SCH (21:15)
[2022-11-25] VITALS (47 sets, daily range): BP systolic 63–159; BP diastolic 14–107
[2022-11-25 00:15] LABS: CREATINE KINASE 293 IU/L (26-192)
[2022-11-25] MEDS: HYDROMORPHONE HCL/PF 2MG/ML CPJ IV PRN ×7 (00:20→22:23)
[2022-11-25] MEDS: CLINDAMYCIN 300 MG PREMIX 50 ML IV SCH ×3 (05:30→22:24)
[2022-11-25] MEDS: BLOOD SUGAR DIAGNOSTIC STRIP TEST SCH ×4 (05:30→21:00)
[2022-11-25 05:31] LABS: BASOPHILS % 0.1 % (0.0-2.0); HEMATOCRIT. 25.5 % (36.0-48.0); HEMOGLOBIN. 8.2 g/dL (12.0-16.0); LYMPHOCYTES % 16.1 % (20.0-50.0); MEAN CORPUSCULAR HEMOGLOBIN 28.8 pg (28.0-32.0); MEAN CORPUSCULAR VOLUME 90.2 fL (81.0-99.0); MEAN PLATELET VOLUME 8.1 fl (7.4-10.4); MONOCYTES % 6.2 % (2.0-8.0); NEUTROPHILS % 77.6 % (40.0-76.0); PLATELET 255 x1000/uL (130-400); RED BLOOD CELL COUNT 2.83 mill/uL (4.2-5.4); RED CELL DISTRIBUTION WIDTH 14.3 % (11.6-14.6)
[2022-11-25 05:40] LABS: CHLORIDE 105 mEq/L (98-107)
[2022-11-25] MEDS: INSULIN LISPRO 100 UNITS/ML SUBCUT SCH ×4 (07:00→21:00)
[2022-11-25] MEDS: HYDROCODONE/ACETAMINOPHEN 7.5/325MG TABLET PO PRN ×2 (07:42→19:39)
[2022-11-25] MEDS: IPRATROPIUM/ALBUTEROL 0.5-3(2.5)MG/3ML NEB HHN SCH ×3 (08:07→21:13)
[2022-11-25] MEDS: MIDODRINE HCL 5MG TABLET PO SCH ×3 (08:29→19:39)
[2022-11-25] MEDS: PANTOPRAZOLE SODIUM 40 MG/VIAL IV SCH (12:09)
[2022-11-25] MEDS ORDERED: MAGNESIUM HYDROXIDE 400MG/5ML 30ML UDC PO PRN (13:45)
[2022-11-25] MEDS ORDERED: THROAT LOZENGES-BENZOCAINE/MENTH/CETYLPYRD CL LOZENGES MM PRN (13:45)
[2022-11-25] MEDS: CYCLOBENZAPRINE 10MG TABLET PO SCH ×2 (14:10→22:19)
[2022-11-25] MEDS: DEXT 5%/0.45% NACL 1000ML 1,000 ML IV SCH ×2 (14:11→22:20)
[2022-11-25 15:32] LABS: HEMATOCRIT 30.5 % (36.0-48.0); HEMOGLOBIN 9.8 g/dL (12.0-16.0)
[2022-11-26] VITALS: BP_SYST 107; BP_SYST 134; BP_DIAS 58; BP_DIAS 59
[2022-11-26] MEDS: IPRATROPIUM/ALBUTEROL 0.5-3(2.5)MG/3ML NEB HHN SCH ×4 (01:01→18:09)
[2022-11-26] MEDS: HYDROMORPHONE HCL/PF 2MG/ML CPJ IV PRN ×7 (01:38→22:09)
[2022-11-26 04:00] VITALS: BP 100/61
[2022-11-26] MEDS: CLINDAMYCIN 300 MG PREMIX 50 ML IV SCH ×3 (06:01→22:00)
[2022-11-26] MEDS: BLOOD SUGAR DIAGNOSTIC STRIP TEST SCH ×4 (06:05→21:00)
[2022-11-26] MEDS: INSULIN LISPRO 100 UNITS/ML SUBCUT SCH ×4 (06:06→21:00)
[2022-11-26 06:57] LABS: BASOPHILS % 0.3 % (0.0-2.0); EOSINOPHILS % 0.3 % (0.0-5.0); HEMATOCRIT. 26.7 % (36.0-48.0); HEMOGLOBIN. 8.6 g/dL (12.0-16.0); LYMPHOCYTES % 21.5 % (20.0-50.0); MEAN CORPUSCULAR VOLUME 89.5 fL (81.0-99.0); MEAN PLATELET VOLUME 7.8 fl (7.4-10.4); MONOCYTES % 8.2 % (2.0-8.0); NEUTROPHILS % 69.7 % (40.0-76.0); PLATELET 219 x1000/uL (130-400); RED BLOOD CELL COUNT 2.98 mill/uL (4.2-5.4)
[2022-11-26 07:06] LABS: CHLORIDE 109 mEq/L (98-107)
[2022-11-26 08:00] VITALS: BP 151/91
[2022-11-26] MEDS: CYCLOBENZAPRINE 10MG TABLET PO SCH ×2 (08:17→22:08)
[2022-11-26] MEDS: MIDODRINE HCL 5MG TABLET PO SCH ×4 (08:18→17:00)
[2022-11-26] MEDS: PANTOPRAZOLE SODIUM 40 MG/VIAL IV SCH (08:18)
[2022-11-26] MEDS: DEXT 5%/0.45% NACL 1000ML 1,000 ML IV SCH ×2 (08:18→21:01)
[2022-11-26 12:00] VITALS: BP 127/68
[2022-11-26 16:00] VITALS: BP 128/91
[2022-11-26 17:02] LABS: HEMATOCRIT 28.1 % (36.0-48.0); HEMOGLOBIN 9.2 g/dL (12.0-16.0)
[2022-11-27] MEDS: IPRATROPIUM/ALBUTEROL 0.5-3(2.5)MG/3ML NEB HHN SCH ×5 (01:30→20:10)
[2022-11-27] MEDS: HYDROMORPHONE HCL/PF 2MG/ML CPJ IV PRN ×5 (06:27→21:36)
[2022-11-27 06:31] LABS: BASOPHILS % 0.3 % (0.0-2.0); EOSINOPHILS % 0.9 % (0.0-5.0); HEMATOCRIT. 27.5 % (36.0-48.0); HEMOGLOBIN. 9.1 g/dL (12.0-16.0); LYMPHOCYTES % 19.7 % (20.0-50.0); MEAN CORPUSCULAR HEMOGLOBIN 29.3 pg (28.0-32.0); MEAN CORPUSCULAR VOLUME 88.4 fL (81.0-99.0); MEAN PLATELET VOLUME 7.7 fl (7.4-10.4); MONOCYTES % 7.5 % (2.0-8.0); NEUTROPHILS % 71.6 % (40.0-76.0); PLATELET 218 x1000/uL (130-400); RED BLOOD CELL COUNT 3.12 mill/uL (4.2-5.4); RED CELL DISTRIBUTION WIDTH 14.7 % (11.6-14.6)
[2022-11-27 06:42] LABS: CHLORIDE 106 mEq/L (98-107)
[2022-11-27] MEDS: INSULIN LISPRO 100 UNITS/ML SUBCUT SCH ×4 (07:40→21:00)
[2022-11-27] MEDS: BLOOD SUGAR DIAGNOSTIC STRIP TEST SCH ×4 (07:52→21:23)
[2022-11-27 08:00] VITALS: BP 129/78
[2022-11-27] MEDS: CYCLOBENZAPRINE 10MG TABLET PO SCH ×2 (09:11→21:30)
[2022-11-27] MEDS: MIDODRINE HCL 5MG TABLET PO SCH ×3 (09:12→18:15)
[2022-11-27] MEDS: HYDROCODONE/ACETAMINOPHEN 7.5/325MG TABLET PO PRN ×2 (09:12→16:23)
[2022-11-27] MEDS: PANTOPRAZOLE SODIUM 40 MG/VIAL IV SCH (09:12)
[2022-11-27 12:00] VITALS: BP 118/68
[2022-11-27] MEDS: DEXT 5%/0.45% NACL 1000ML 1,000 ML IV SCH ×2 (12:31→20:55)
[2022-11-27 16:00] VITALS: BP 121/72
[2022-11-27 20:00] VITALS: BP 100/58
[2022-11-28] VITALS (7 sets, daily range): BP systolic 107–141; BP diastolic 54–83
[2022-11-28] MEDS: HYDROCODONE/ACETAMINOPHEN 7.5/325MG TABLET PO PRN ×3 (01:18→17:44)
[2022-11-28] MEDS: HYDROMORPHONE HCL/PF 2MG/ML CPJ IV PRN ×5 (01:45→19:53)
[2022-11-28] MEDS: BLOOD SUGAR DIAGNOSTIC STRIP TEST SCH ×3 (06:16→17:45)
[2022-11-28] MEDS: INSULIN LISPRO 100 UNITS/ML SUBCUT SCH ×3 (06:17→17:40)
[2022-11-28 06:40] LABS: BASOPHILS % 0.4 % (0.0-2.0); EOSINOPHILS % 2.4 % (0.0-5.0); HEMATOCRIT. 25.3 % (36.0-48.0); HEMOGLOBIN. 8.4 g/dL (12.0-16.0); MEAN CORPUSCULAR HEMOGLOBIN 29.7 pg (28.0-32.0); MEAN CORPUSCULAR VOLUME 89.4 fL (81.0-99.0); MEAN PLATELET VOLUME 7.8 fl (7.4-10.4); MONOCYTES % 7.7 % (2.0-8.0); NEUTROPHILS % 68.5 % (40.0-76.0); PLATELET 219 x1000/uL (130-400); RED BLOOD CELL COUNT 2.83 mill/uL (4.2-5.4); RED CELL DISTRIBUTION WIDTH 14.3 % (11.6-14.6)
[2022-11-28 06:44] LABS: CHLORIDE 106 mEq/L (98-107)
[2022-11-28] MEDS: IPRATROPIUM/ALBUTEROL 0.5-3(2.5)MG/3ML NEB HHN SCH ×2 (07:53→13:24)
[2022-11-28] MEDS: MIDODRINE HCL 5MG TABLET PO SCH ×3 (08:36→17:45)
[2022-11-28] MEDS: CYCLOBENZAPRINE 10MG TABLET PO SCH (08:36)
[2022-11-28] MEDS: PANTOPRAZOLE SODIUM 40 MG/VIAL IV SCH (08:36)
[2022-11-28] MEDS ORDERED: POLYETHYLENE GLYCOL 3350 (17GM) 1 DOSE PACK PO SCH (11:15)
[2022-11-28] MEDS: DEXT 5%/0.45% NACL 1000ML 1,000 ML IV SCH (12:58)
[2022-11-28] MEDS ORDERED: LACTULOSE 20G/30ML UDC PO PRN (14:15)
[2022-11-28] MEDS ORDERED: INFLUENZA VACCINE 05/PF 0.5 ML SYRINGE IM ONE (18:15)
== END 2022-11-28 20:36 | DRG 460 ==
LOC: OR 05:53 → SUPCPDRO 10:27 → MICUSO 15:17 → 8WST 11-25 19:55
PROVIDERS: ADMIT Neurological Surgery; ATTEND Neurological Surgery
PROC: 0SG0071 Fusion of Lumbar Vertebral Joint with Autologous Tissue Substitute, Posterior Approach, Posterior Column, Open Approach (ICD-10-PCS; principal; 2022-11-24)
PROC: 01NB0ZZ Release Lumbar Nerve, Open Approach (ICD-10-PCS; 2022-11-24)
PROC: 30233N1 Transfusion of Nonautologous Red Blood Cells into Peripheral Vein, Percutaneous Approach (ICD-10-PCS; 2022-11-25)
PROC: 5A09357 Assistance with Respiratory Ventilation, Less than 24 Consecutive Hours, Continuous Positive Airway Pressure (ICD-10-PCS; 2022-11-27)
DX: M48.061 Spinal stenosis, lumbar region without neurogenic claudication (principal); E44.1 Mild protein-calorie malnutrition; M47.816 Spondylosis without myelopathy or radiculopathy, lumbar region; M43.16 Spondylolisthesis, lumbar region; G47.33 Obstructive sleep apnea (adult) (pediatric); K59.09 Other constipation; N18.9 Chronic kidney disease, unspecified; J30.9 Allergic rhinitis, unspecified; Z20.822 Contact with and (suspected) exposure to COVID-19; E78.5 Hyperlipidemia, unspecified; I10 Essential (primary) hypertension; E11.22 Type 2 diabetes mellitus with diabetic chronic kidney disease; D63.1 Anemia in chronic kidney disease; I12.9 Hypertensive chronic kidney disease with stage 1 through stage 4 chronic kidney disease, or unspecified chronic kidney disease; R26.89 Other abnormalities of gait and mobility; Z88.0 Allergy status to penicillin
CPT/HCPCS: 36415; 72100; 76000; 80048; 80053; 81003; 82550; 82962; 83036; 85014; 85018; 85025; 85027; 86850; 86900; 86920; 87426; 88300; 90686; 93970; 94640; 94660; 95925; 95926; 95928; 95929; 97162; 97166; 97530; C9113; C9803; J1170; J1580; J2250; J2270; J2370; J2704; J2710; J3010; J3490; L3908; P9016; C1713; C1762

== ENCOUNTER 2022-11-28 20:15 | Inpatient (IN) | payer MEDICARE, MEDICAID ==
[~2022-11-28] VITALS: Ht 167.6 cm; Wt 98.0 kg
[2022-11-28 20:15] VITALS: BP 107/88
[~2022-11-28 20:15] MED LIST changes: +ACET-2708 PO; -ACET650S25 PO; +ALBU18HF2 IH; -AMLO5TAB88 PO; -ASPI-1497 PO; -BACL-141 PO; -CLAR10 PO; -DULO60CA45 PO; +GABA-290 PO; -LIDO700A30 TOP; -LOSA50TA3 PO; -NAPR-1074 MT; +PREG75CA PO; -VALS80TA30 PO; +[UNRECOGNIZED DRUG - CODE] PO
[2022-11-28 20:20] VITALS: BP 107/88
[2022-11-28] MEDS ORDERED: THROAT LOZENGES-BENZOCAINE/MENTH/CETYLPYRD CL LOZENGES MM PRN (21:30)
[2022-11-28] MEDS ORDERED: NALOXONE HCL 0.4 MG/ML 1ML VIAL IV PRN (21:30)
[2022-11-28] MEDS ORDERED: IPRATROPIUM/ALBUTEROL 0.5-3(2.5)MG/3ML NEB HHN PRN (21:30)
[2022-11-28] MEDS ORDERED: ACETAMINOPHEN 325MG TABLET PO PRN (21:30)
[2022-11-28] MEDS ORDERED: MAGNESIUM HYDROXIDE 400MG/5ML 30ML UDC PO PRN (21:30)
[2022-11-28] MEDS ORDERED: POLYETHYLENE GLYCOL 3350 (17GM) 1 DOSE PACK PO SCH (21:30)
[2022-11-28] MEDS ORDERED: CLONIDINE 0.1MG TABLET PO PRN (21:30)
[2022-11-28] MEDS ORDERED: DEXTROSE 50% WATER 50ML SYRINGE IV PRN (21:30)
[2022-11-28] MEDS: CYCLOBENZAPRINE 10MG TABLET PO SCH (22:53)
[2022-11-28] MEDS: LACTULOSE 20G/30ML UDC PO PRN (22:53)
[2022-11-28] MEDS: MORPHINE SULFATE 4 MG/ML CPJ (NOT FOR IM USE) IV PRN (22:57)
[2022-11-29] MEDS: HYDROCODONE/ACETAMINOPHEN 7.5/325MG TABLET PO PRN ×2 (02:45→15:50)
[2022-11-29] MEDS: CYCLOBENZAPRINE 10MG TABLET PO SCH ×2 (06:05→16:42)
[2022-11-29 06:22] LABS: BASOPHILS % 0.5 % (0.0-2.0); CHLORIDE 106 mEq/L (98-107); EOSINOPHILS % 2.8 % (0.0-5.0); HEMATOCRIT. 25.4 % (36.0-48.0); HEMOGLOBIN. 8.5 g/dL (12.0-16.0); LYMPHOCYTES % 16.7 % (20.0-50.0); MEAN CORPUSCULAR HEMOGLOBIN 29.8 pg (28.0-32.0); MEAN CORPUSCULAR VOLUME 89.3 fL (81.0-99.0); MONOCYTES % 8.7 % (2.0-8.0); NEUTROPHILS % 71.3 % (40.0-76.0); PLATELET 253 x1000/uL (130-400); RED BLOOD CELL COUNT 2.84 mill/uL (4.2-5.4); RED CELL DISTRIBUTION WIDTH 14.3 % (11.6-14.6)
[2022-11-29] MEDS: BLOOD SUGAR DIAGNOSTIC STRIP TEST SCH ×4 (06:23→20:58)
[2022-11-29] MEDS: HYDROMORPHONE HCL/PF 2MG/ML CPJ IV PRN ×5 (06:25→23:03)
[2022-11-29] MEDS: INSULIN LISPRO 100 UNITS/ML SUBCUT SCH ×4 (07:14→20:59)
[2022-11-29] MEDS: IPRATROPIUM/ALBUTEROL 0.5-3(2.5)MG/3ML NEB HHN SCH ×3 (07:49→22:30)
[2022-11-29 08:00] VITALS: BP 106/65
[2022-11-29] MEDS ORDERED: POLYETHYLENE GLYCOL 3350 (17GM) 1 DOSE PACK PO NR (09:00)
[2022-11-29] MEDS ORDERED: MAGNESIUM/ALUMINUM HYDROXIDE/SIMETHICONE 30ML UDC PO PRN (10:00)
[2022-11-29] MEDS ORDERED: DOCUSATE SODIUM 250MG CAPSULE PO SCH (10:00)
[2022-11-29] MEDS: FERROUS SULFATE 325MG TABLET PO SCH ×2 (10:11→16:41)
[2022-11-29] MEDS: MULTIVITAMINS,THER W-MINERALS TABLET PO SCH (10:11)
[2022-11-29] MEDS: METOPROLOL SUCCINATE 50MG ER TABLET PO SCH ×2 (10:12→20:58)
[2022-11-29] MEDS: MIDODRINE HCL 5MG TABLET PO SCH ×3 (10:13→16:41)
[2022-11-29] MEDS: PANTOPRAZOLE SODIUM 40 MG/VIAL IV SCH (10:48)
[2022-11-29 10:53] LABS: TOTAL IRON BINDING CAPACITY 182 ug/dL (250-450)
[2022-11-29] MEDS ORDERED: INFLUENZA VACCINE 05/PF 0.5 ML SYRINGE IM ONE (11:00)
[2022-11-29 11:27] LABS: VITAMIN B12 SERUM 1385 pg/mL (211-911)
[2022-11-29] MEDS: POLYETHYLENE GLYCOL 3350 (17GM) 1 DOSE PACK PO SCH (13:06)
[2022-11-29] MEDS: PHENAZOPYRIDINE HCL 100MG TABLET PO SCH ×2 (13:07→16:41)
[2022-11-29 19:57] VITALS: BP 101/59
[2022-11-29] MEDS ORDERED: GABAPENTIN 300MG CAPSULE PO SCH (22:00)
[2022-11-30] MEDS: IPRATROPIUM/ALBUTEROL 0.5-3(2.5)MG/3ML NEB HHN SCH ×3 (01:55→15:39)
[2022-11-30] MEDS: BLOOD SUGAR DIAGNOSTIC STRIP TEST SCH ×4 (06:36→20:45)
[2022-11-30] MEDS: CYCLOBENZAPRINE 10MG TABLET PO SCH ×2 (06:36→17:43)
[2022-11-30] MEDS: HYDROMORPHONE HCL/PF 2MG/ML CPJ IV PRN ×3 (07:19→21:36)
[2022-11-30 08:00] VITALS: BP 121/61
[2022-11-30] MEDS: DOCUSATE SODIUM 250MG CAPSULE PO SCH (08:43)
[2022-11-30] MEDS: PANTOPRAZOLE SODIUM 40 MG/VIAL IV SCH (08:43)
[2022-11-30] MEDS: FERROUS SULFATE 325MG TABLET PO SCH ×2 (08:44→17:43)
[2022-11-30] MEDS: POLYETHYLENE GLYCOL 3350 (17GM) 1 DOSE PACK PO SCH (08:44)
[2022-11-30] MEDS: MULTIVITAMINS,THER W-MINERALS TABLET PO SCH (08:45)
[2022-11-30] MEDS: PHENAZOPYRIDINE HCL 100MG TABLET PO SCH ×3 (08:45→17:43)
[2022-11-30] MEDS: METOPROLOL SUCCINATE 50MG ER TABLET PO SCH ×2 (08:45→20:13)
[2022-11-30] MEDS: MIDODRINE HCL 5MG TABLET PO SCH ×3 (08:45→17:43)
[2022-11-30] MEDS: HYDROCODONE/ACETAMINOPHEN 7.5/325MG TABLET PO PRN ×2 (08:46→13:20)
[2022-11-30] MEDS: INSULIN LISPRO 100 UNITS/ML SUBCUT SCH ×4 (09:00→20:45)
[2022-11-30] MEDS ORDERED: SORBITOL 70% SOLN 30ML PO NR (12:00)
[2022-11-30 19:57] VITALS: BP 121/71
[2022-11-30] MEDS: PREGABALIN 50 MG CAPSULE PO SCH (20:12)
[2022-12-01] MEDS: HYDROMORPHONE HCL/PF 2MG/ML CPJ IV PRN ×3 (03:21→23:15)
[2022-12-01] MEDS: CYCLOBENZAPRINE 10MG TABLET PO SCH ×2 (06:16→17:29)
[2022-12-01] MEDS: BLOOD SUGAR DIAGNOSTIC STRIP TEST SCH ×4 (06:20→21:32)
[2022-12-01] MEDS: INSULIN LISPRO 100 UNITS/ML SUBCUT SCH ×4 (06:20→21:00)
[2022-12-01] MEDS: HYDROCODONE/ACETAMINOPHEN 7.5/325MG TABLET PO PRN ×3 (06:50→22:15)
[2022-12-01] MEDS: LACTULOSE 20G/30ML UDC PO PRN ×2 (06:50→22:02)
[2022-12-01 08:00] VITALS: BP 105/68
[2022-12-01] MEDS: DOCUSATE SODIUM 250MG CAPSULE PO SCH (08:36)
[2022-12-01] MEDS: PHENAZOPYRIDINE HCL 100MG TABLET PO SCH ×3 (08:36→16:07)
[2022-12-01] MEDS: FERROUS SULFATE 325MG TABLET PO SCH ×2 (08:36→16:07)
[2022-12-01] MEDS: MULTIVITAMINS,THER W-MINERALS TABLET PO SCH (08:36)
[2022-12-01] MEDS: POLYETHYLENE GLYCOL 3350 (17GM) 1 DOSE PACK PO SCH (08:36)
[2022-12-01] MEDS: PREGABALIN 50 MG CAPSULE PO SCH ×2 (08:36→20:25)
[2022-12-01] MEDS: PANTOPRAZOLE SODIUM 40 MG/VIAL IV SCH (08:37)
[2022-12-01] MEDS: MORPHINE SULFATE 4 MG/ML CPJ (NOT FOR IM USE) IV PRN ×2 (08:37→16:08)
[2022-12-01] MEDS: MIDODRINE HCL 5MG TABLET PO SCH ×3 (08:37→16:08)
[2022-12-01] MEDS: METOPROLOL SUCCINATE 50MG ER TABLET PO SCH ×2 (08:38→20:25)
[2022-12-01] MEDS ORDERED: NA PHOS,M-B/NA PHOS,DI-BA ENEMA 118ML PR PRN (09:00)
[2022-12-01] MEDS ORDERED: DIPHENHYDRAMINE 25MG CAPSULE PO PRN (09:00)
[2022-12-01] MEDS ORDERED: BISACODYL 10MG SUPP PR PRN (14:15)
[2022-12-01 20:00] VITALS: BP 105/63
[2022-12-02] MEDS: HYDROMORPHONE HCL/PF 2MG/ML CPJ IV PRN ×4 (04:06→22:53)
[2022-12-02] MEDS: CYCLOBENZAPRINE 10MG TABLET PO SCH ×2 (05:51→17:40)
[2022-12-02] MEDS: BLOOD SUGAR DIAGNOSTIC STRIP TEST SCH ×4 (06:23→21:00)
[2022-12-02 06:33] LABS: BASOPHILS % 0.6 % (0.0-2.0); EOSINOPHILS % 4.3 % (0.0-5.0); HEMATOCRIT. 28.8 % (36.0-48.0); HEMOGLOBIN. 9.3 g/dL (12.0-16.0); LYMPHOCYTES % 31.7 % (20.0-50.0); MEAN CORPUSCULAR HEMOGLOBIN 29.5 pg (28.0-32.0); MEAN CORPUSCULAR VOLUME 91.1 fL (81.0-99.0); MEAN PLATELET VOLUME 7.6 fl (7.4-10.4); MONOCYTES % 9.7 % (2.0-8.0); NEUTROPHILS % 53.7 % (40.0-76.0); PLATELET 343 x1000/uL (130-400); RED BLOOD CELL COUNT 3.16 mill/uL (4.2-5.4); RED CELL DISTRIBUTION WIDTH 14.1 % (11.6-14.6)
[2022-12-02 08:00] VITALS: BP 94/48
[2022-12-02 08:28] LABS: CHLORIDE 105 mEq/L (98-107)
[2022-12-02 08:39] LABS: TOTAL IRON BINDING CAPACITY 342 ug/dL (250-450)
[2022-12-02] MEDS: POLYETHYLENE GLYCOL 3350 (17GM) 1 DOSE PACK PO SCH (08:57)
[2022-12-02] MEDS: PANTOPRAZOLE SODIUM 40 MG/VIAL IV SCH (08:57)
[2022-12-02] MEDS: PHENAZOPYRIDINE HCL 100MG TABLET PO SCH ×3 (08:58→17:44)
[2022-12-02] MEDS: DOCUSATE SODIUM 250MG CAPSULE PO SCH (08:58)
[2022-12-02] MEDS: FERROUS SULFATE 325MG TABLET PO SCH ×2 (08:58→17:41)
[2022-12-02] MEDS: PREGABALIN 50 MG CAPSULE PO SCH ×2 (08:58→20:23)
[2022-12-02 08:59] VITALS: BP 100/58
[2022-12-02] MEDS: MIDODRINE HCL 5MG TABLET PO SCH ×3 (08:59→17:48)
[2022-12-02] MEDS: MULTIVITAMINS,THER W-MINERALS TABLET PO SCH (08:59)
[2022-12-02] MEDS: METOPROLOL SUCCINATE 50MG ER TABLET PO SCH ×2 (09:00→20:24)
[2022-12-02] MEDS: INSULIN LISPRO 100 UNITS/ML SUBCUT SCH ×4 (09:00→21:00)
[2022-12-02] MEDS: HYDROCODONE/ACETAMINOPHEN 7.5/325MG TABLET PO PRN ×3 (09:01→20:27)
[2022-12-02] MEDS ORDERED: NA PHOS,M-B/NA PHOS,DI-BA ENEMA 118ML PR NR (09:15)
[2022-12-02] MEDS: DICLOFENAC SODIUM 1% GEL 50GM TOP SCH ×3 (12:05→20:27)
[2022-12-02] MEDS: MORPHINE SULFATE 4 MG/ML CPJ (NOT FOR IM USE) IV PRN (15:44)
[2022-12-02] MEDS: LACTULOSE 20G/30ML UDC PO PRN (16:01)
[2022-12-02 19:47] VITALS: BP 95/43
[2022-12-02] MEDS: SENNOSIDES/DOCUSATE SOD 8.6/50MG TABLET PO SCH (19:57)
[2022-12-03] MEDS: HYDROMORPHONE HCL/PF 2MG/ML CPJ IV PRN ×6 (03:21→22:52)
[2022-12-03] MEDS: BLOOD SUGAR DIAGNOSTIC STRIP TEST SCH ×4 (05:49→20:32)
[2022-12-03] MEDS: CYCLOBENZAPRINE 10MG TABLET PO SCH ×2 (06:25→17:35)
[2022-12-03 08:00] VITALS: BP 103/56
[2022-12-03] MEDS: METOPROLOL SUCCINATE 50MG ER TABLET PO SCH ×2 (08:57→20:20)
[2022-12-03] MEDS: POLYETHYLENE GLYCOL 3350 (17GM) 1 DOSE PACK PO SCH ×2 (09:00→09:03)
[2022-12-03] MEDS: INSULIN LISPRO 100 UNITS/ML SUBCUT SCH ×4 (09:00→20:34)
[2022-12-03] MEDS: PANTOPRAZOLE SODIUM 40 MG/VIAL IV SCH (09:02)
[2022-12-03] MEDS: PHENAZOPYRIDINE HCL 100MG TABLET PO SCH ×3 (09:02→16:39)
[2022-12-03] MEDS: FERROUS SULFATE 325MG TABLET PO SCH ×2 (09:02→16:39)
[2022-12-03] MEDS: MULTIVITAMINS,THER W-MINERALS TABLET PO SCH (09:02)
[2022-12-03] MEDS: MIDODRINE HCL 5MG TABLET PO SCH ×3 (09:03→16:39)
[2022-12-03] MEDS: DICLOFENAC SODIUM 1% GEL 50GM TOP SCH ×4 (09:08→20:23)
[2022-12-03 20:00] VITALS: BP 105/63
[2022-12-03] MEDS: SENNOSIDES/DOCUSATE SOD 8.6/50MG TABLET PO SCH (20:19)
[2022-12-03] MEDS: PREGABALIN 75MG CAPSULE PO SCH (20:19)
[2022-12-04] MEDS: CYCLOBENZAPRINE 10MG TABLET PO SCH ×2 (05:49→17:09)
[2022-12-04] MEDS: BLOOD SUGAR DIAGNOSTIC STRIP TEST SCH ×4 (06:30→20:59)
[2022-12-04 08:00] VITALS: BP 127/79
[2022-12-04] MEDS: PANTOPRAZOLE SODIUM 40 MG/VIAL IV SCH (08:52)
[2022-12-04] MEDS: PHENAZOPYRIDINE HCL 100MG TABLET PO SCH (08:52)
[2022-12-04] MEDS: PREGABALIN 75MG CAPSULE PO SCH ×2 (08:52→20:57)
[2022-12-04] MEDS: HYDROMORPHONE HCL/PF 2MG/ML CPJ IV PRN ×3 (08:52→22:11)
[2022-12-04] MEDS: FERROUS SULFATE 325MG TABLET PO SCH ×2 (08:52→17:09)
[2022-12-04] MEDS: MIDODRINE HCL 5MG TABLET PO SCH ×3 (08:53→17:10)
[2022-12-04] MEDS: MULTIVITAMINS,THER W-MINERALS TABLET PO SCH (08:53)
[2022-12-04] MEDS: POLYETHYLENE GLYCOL 3350 (17GM) 1 DOSE PACK PO SCH (08:54)
[2022-12-04] MEDS: METOPROLOL SUCCINATE 50MG ER TABLET PO SCH ×2 (08:54→21:00)
[2022-12-04] MEDS: DICLOFENAC SODIUM 1% GEL 50GM TOP SCH ×4 (08:55→21:03)
[2022-12-04] MEDS: INSULIN LISPRO 100 UNITS/ML SUBCUT SCH ×4 (09:00→20:59)
[2022-12-04 20:00] VITALS: BP 106/70
[2022-12-04] MEDS: SENNOSIDES/DOCUSATE SOD 8.6/50MG TABLET PO SCH (20:59)
[2022-12-05] MEDS: CYCLOBENZAPRINE 10MG TABLET PO SCH ×2 (06:25→17:38)
[2022-12-05] MEDS: BLOOD SUGAR DIAGNOSTIC STRIP TEST SCH ×4 (06:42→20:29)
[2022-12-05] MEDS: HYDROMORPHONE HCL/PF 2MG/ML CPJ IV PRN ×3 (07:10→22:17)
[2022-12-05 08:00] VITALS: BP 97/61
[2022-12-05] MEDS: METOPROLOL SUCCINATE 50MG ER TABLET PO SCH ×2 (09:00→20:26)
[2022-12-05] MEDS: DICLOFENAC SODIUM 1% GEL 50GM TOP SCH ×4 (09:00→20:25)
[2022-12-05] MEDS: POLYETHYLENE GLYCOL 3350 (17GM) 1 DOSE PACK PO SCH (09:00)
[2022-12-05] MEDS: INSULIN LISPRO 100 UNITS/ML SUBCUT SCH ×4 (09:00→20:29)
[2022-12-05] MEDS: PANTOPRAZOLE SODIUM 40 MG/VIAL IV SCH (09:06)
[2022-12-05] MEDS: PREGABALIN 75MG CAPSULE PO SCH ×2 (09:07→20:25)
[2022-12-05] MEDS: FERROUS SULFATE 325MG TABLET PO SCH ×2 (09:08→17:37)
[2022-12-05] MEDS: MIDODRINE HCL 5MG TABLET PO SCH ×3 (09:08→17:38)
[2022-12-05] MEDS: MULTIVITAMINS,THER W-MINERALS TABLET PO SCH (09:08)
[2022-12-05 19:51] VITALS: BP 89/57
[2022-12-05] MEDS: SENNOSIDES/DOCUSATE SOD 8.6/50MG TABLET PO SCH (20:26)
[2022-12-06 06:01] LABS: BASOPHILS % 0.6 % (0.0-2.0); EOSINOPHILS % 3.3 % (0.0-5.0); HEMATOCRIT. 26.6 % (36.0-48.0); HEMOGLOBIN. 8.7 g/dL (12.0-16.0); LYMPHOCYTES % 29.9 % (20.0-50.0); MEAN CORPUSCULAR HEMOGLOBIN 29.4 pg (28.0-32.0); MEAN CORPUSCULAR VOLUME 89.7 fL (81.0-99.0); MEAN PLATELET VOLUME 6.5 fl (7.4-10.4); MONOCYTES % 8.1 % (2.0-8.0); NEUTROPHILS % 58.1 % (40.0-76.0); PLATELET 443 x1000/uL (130-400); RED BLOOD CELL COUNT 2.97 mill/uL (4.2-5.4); RED CELL DISTRIBUTION WIDTH 14.1 % (11.6-14.6)
[2022-12-06] MEDS: CYCLOBENZAPRINE 10MG TABLET PO SCH ×2 (06:09→17:53)
[2022-12-06] MEDS: BLOOD SUGAR DIAGNOSTIC STRIP TEST SCH ×4 (06:12→21:28)
[2022-12-06] MEDS: HYDROMORPHONE HCL/PF 2MG/ML CPJ IV PRN ×4 (06:23→23:27)
[2022-12-06] MEDS: INSULIN LISPRO 100 UNITS/ML SUBCUT SCH ×4 (06:31→21:00)
[2022-12-06 07:00] LABS: CHLORIDE 107 mEq/L (98-107)
[2022-12-06 08:00] VITALS: BP 94/51
[2022-12-06] MEDS: DICLOFENAC SODIUM 1% GEL 50GM TOP SCH ×4 (09:00→21:18)
[2022-12-06] MEDS: MIDODRINE HCL 5MG TABLET PO SCH ×3 (10:14→17:54)
[2022-12-06] MEDS: FERROUS SULFATE 325MG TABLET PO SCH ×2 (10:14→17:53)
[2022-12-06] MEDS: POLYETHYLENE GLYCOL 3350 (17GM) 1 DOSE PACK PO SCH (10:15)
[2022-12-06] MEDS: METOPROLOL SUCCINATE 50MG ER TABLET PO SCH ×2 (10:15→21:20)
[2022-12-06] MEDS: PREGABALIN 75MG CAPSULE PO SCH ×2 (10:15→21:18)
[2022-12-06] MEDS: MULTIVITAMINS,THER W-MINERALS TABLET PO SCH (10:15)
[2022-12-06] MEDS: PANTOPRAZOLE SODIUM 40 MG/VIAL IV SCH (10:51)
[2022-12-06] MEDS ORDERED: NALOXONE HCL 0.4MG/ML VIAL IV PRN (12:45)
[2022-12-06] MEDS ORDERED: HYDROCODONE/ACETAMINOPHEN 10/325MG TABLET PO PRN (14:15)
[2022-12-06 20:00] VITALS: BP 133/89
[2022-12-06] MEDS: SENNOSIDES/DOCUSATE SOD 8.6/50MG TABLET PO SCH (21:18)
[2022-12-06] MEDS: HYDROCODONE/ACETAMINOPHEN 10/325MG TABLET PO PRN (21:28)
[2022-12-07] MEDS: CYCLOBENZAPRINE 10MG TABLET PO SCH ×2 (06:06→17:53)
[2022-12-07] MEDS: BLOOD SUGAR DIAGNOSTIC STRIP TEST SCH ×4 (06:15→20:52)
[2022-12-07] MEDS: HYDROMORPHONE HCL/PF 2MG/ML CPJ IV PRN (06:15)
[2022-12-07] MEDS: HYDROCODONE/ACETAMINOPHEN 10/325MG TABLET PO PRN (07:46)
[2022-12-07 08:00] VITALS: BP 96/57
[2022-12-07] MEDS: INSULIN LISPRO 100 UNITS/ML SUBCUT SCH ×4 (09:00→20:52)
[2022-12-07] MEDS: MULTIVITAMINS,THER W-MINERALS TABLET PO SCH (09:00)
[2022-12-07] MEDS: PANTOPRAZOLE SODIUM 40 MG/VIAL IV SCH (09:28)
[2022-12-07] MEDS: POLYETHYLENE GLYCOL 3350 (17GM) 1 DOSE PACK PO SCH (09:28)
[2022-12-07] MEDS: FERROUS SULFATE 325MG TABLET PO SCH ×2 (09:28→16:08)
[2022-12-07] MEDS: PREGABALIN 75MG CAPSULE PO SCH ×2 (09:28→22:37)
[2022-12-07] MEDS: DICLOFENAC SODIUM 1% GEL 50GM TOP SCH ×4 (09:29→20:56)
[2022-12-07] MEDS: METOPROLOL SUCCINATE 50MG ER TABLET PO SCH ×2 (09:29→22:39)
[2022-12-07] MEDS: MIDODRINE HCL 5MG TABLET PO SCH ×3 (09:29→16:13)
[2022-12-07] MEDS ORDERED: HYDROCODONE/ACETAMINOPHEN 10/325MG TABLET PO PRN (09:45)
[2022-12-07] MEDS: LIDOCAINE 5% PATCH TOP SCH (10:16)
[2022-12-07] MEDS: OXYCODONE HCL 5MG TABLET PO PRN ×2 (11:56→22:40)
[2022-12-07] MEDS ORDERED: HYDROMORPHONE HCL 2MG TABLET PO PRN (14:30)
[2022-12-07 16:58] LABS: CLARITY URINE CLOUDY (CLEAR); COLOR URINE YELLOW (YELLOW); KETONES URINE NEGATIVE (NEGATIVE); LEUKOCYTE ESTERASE URINE 3+ (NEGATIVE); NITRITE URINE NEGATIVE (NEGATIVE); OCCULT BLOOD URINE TRACE (NEGATIVE); PH URINE 5.5 (4.5-8.0); PROTEIN URINE NEGATIVE (NEGATIVE); SPECIFIC GRAVITY URINE 1.009 (1.005-1.030); UROBILINOGEN URINE 0.2 E.U./dL (0.2-1.0)
[2022-12-07 20:00] VITALS: BP 97/58
[2022-12-07] MEDS: SENNOSIDES/DOCUSATE SOD 8.6/50MG TABLET PO SCH ×2 (20:52→21:02)
[2022-12-08] MEDS: IPRATROPIUM/ALBUTEROL 0.5-3(2.5)MG/3ML NEB HHN SCH ×3 (01:30→12:22)
[2022-12-08 06:00] VITALS: BP 106/70
[2022-12-08] MEDS: INSULIN LISPRO 100 UNITS/ML SUBCUT SCH (06:29)
[2022-12-08] MEDS: BLOOD SUGAR DIAGNOSTIC STRIP TEST SCH (06:29)
[2022-12-08] MEDS: OXYCODONE HCL 5MG TABLET PO PRN (06:31)
[2022-12-08] MEDS: CYCLOBENZAPRINE 10MG TABLET PO SCH ×2 (06:31→16:57)
[2022-12-08 08:00] VITALS: BP 126/80
[2022-12-08] MEDS: PANTOPRAZOLE SODIUM 40 MG/VIAL IV SCH (08:32)
[2022-12-08] MEDS: FERROUS SULFATE 325MG TABLET PO SCH ×2 (08:39→16:57)
[2022-12-08] MEDS: MULTIVITAMINS,THER W-MINERALS TABLET PO SCH (08:39)
[2022-12-08] MEDS: PREGABALIN 75MG CAPSULE PO SCH ×2 (08:39→21:29)
[2022-12-08] MEDS: METOPROLOL SUCCINATE 50MG ER TABLET PO SCH ×2 (08:40→21:26)
[2022-12-08] MEDS: MIDODRINE HCL 5MG TABLET PO SCH ×3 (08:40→17:00)
[2022-12-08] MEDS: POLYETHYLENE GLYCOL 3350 (17GM) 1 DOSE PACK PO SCH (08:40)
[2022-12-08] MEDS: DICLOFENAC SODIUM 1% GEL 50GM TOP SCH ×4 (08:41→21:39)
[2022-12-08] MEDS: LIDOCAINE 5% PATCH TOP SCH (08:41)
[2022-12-08] MEDS ORDERED: FLUTICASONE/VILANTEROL 200-25 BLST.W.DEV ORI SCH (09:30)
[2022-12-08] MEDS ORDERED: BUDESONIDE 0.5MG/2ML NEB HHN SCH (12:00)
[2022-12-08] MEDS: LEVOFLOXACIN 500MG TABLET PO SCH (12:22)
[2022-12-08] MEDS: HYDROCODONE/ACETAMINOPHEN 10/325MG TABLET PO PRN ×3 (12:23→23:45)
[2022-12-08] MEDS ORDERED: ALBUTEROL (0.083%) 2.5MG/3ML NEB HHN PRN (12:45)
[2022-12-08] MEDS ORDERED: IPRATROPIUM BROMIDE (0.02%) 0.5MG/2.5ML NEB HHN PRN ×2 (12:45→13:00)
[2022-12-08] MEDS: ALBUTEROL (0.083%) 2.5MG/3ML NEB HHN SCH ×2 (13:33→22:09)
[2022-12-08] MEDS: SENNOSIDES/DOCUSATE SOD 8.6/50MG TABLET PO SCH (15:04)
[2022-12-08 20:07] VITALS: BP 103/56
[2022-12-08] MEDS: IPRATROPIUM BROMIDE (0.02%) 0.5MG/2.5ML NEB HHN SCH (22:09)
[2022-12-09] MEDS: ALBUTEROL (0.083%) 2.5MG/3ML NEB HHN SCH ×4 (02:57→21:33)
[2022-12-09] MEDS: IPRATROPIUM BROMIDE (0.02%) 0.5MG/2.5ML NEB HHN SCH ×4 (02:57→21:33)
[2022-12-09] MEDS: CYCLOBENZAPRINE 10MG TABLET PO SCH ×2 (06:36→18:00)
[2022-12-09] MEDS: HYDROCODONE/ACETAMINOPHEN 10/325MG TABLET PO PRN ×4 (07:52→20:43)
[2022-12-09 08:00] VITALS: BP 110/68
[2022-12-09] MEDS: FERROUS SULFATE 325MG TABLET PO SCH ×2 (08:54→16:32)
[2022-12-09] MEDS: MULTIVITAMINS,THER W-MINERALS TABLET PO SCH (08:54)
[2022-12-09] MEDS: PREGABALIN 75MG CAPSULE PO SCH ×2 (08:54→20:42)
[2022-12-09] MEDS: DICLOFENAC SODIUM 1% GEL 50GM TOP SCH ×4 (08:55→20:42)
[2022-12-09] MEDS: MIDODRINE HCL 5MG TABLET PO SCH ×3 (08:55→16:33)
[2022-12-09] MEDS: POLYETHYLENE GLYCOL 3350 (17GM) 1 DOSE PACK PO SCH (08:55)
[2022-12-09] MEDS: METOPROLOL SUCCINATE 50MG ER TABLET PO SCH (08:55)
[2022-12-09] MEDS: PANTOPRAZOLE SODIUM 40 MG/VIAL IV SCH (09:00)
[2022-12-09] MEDS ORDERED: NALOXONE HCL 0.4MG/ML VIAL IV PRN (10:00)
[2022-12-09] MEDS: LEVOFLOXACIN 500MG TABLET PO SCH (12:16)
[2022-12-09] MEDS: PHENAZOPYRIDINE HCL 100MG TABLET PO SCH ×2 (16:32→19:08)
[2022-12-09] MEDS: LIDOCAINE 5% PATCH TOP SCH (16:34)
[2022-12-09 19:54] VITALS: BP 115/50
[2022-12-09] MEDS: SENNOSIDES/DOCUSATE SOD 8.6/50MG TABLET PO SCH (20:43)
[2022-12-10] MEDS: HYDROCODONE/ACETAMINOPHEN 10/325MG TABLET PO PRN ×6 (00:48→23:19)
[2022-12-10] MEDS: IPRATROPIUM BROMIDE (0.02%) 0.5MG/2.5ML NEB HHN SCH ×4 (01:25→22:50)
[2022-12-10] MEDS: ALBUTEROL (0.083%) 2.5MG/3ML NEB HHN SCH ×3 (01:25→22:49)
[2022-12-10] MEDS: CYCLOBENZAPRINE 10MG TABLET PO SCH ×2 (05:02→18:17)
[2022-12-10 08:00] VITALS: BP 111/53
[2022-12-10] MEDS: PANTOPRAZOLE SODIUM 40 MG/VIAL IV SCH (08:55)
[2022-12-10] MEDS: DICLOFENAC SODIUM 1% GEL 50GM TOP SCH ×4 (08:55→21:20)
[2022-12-10] MEDS: POLYETHYLENE GLYCOL 3350 (17GM) 1 DOSE PACK PO SCH (08:55)
[2022-12-10] MEDS: MULTIVITAMINS,THER W-MINERALS TABLET PO SCH (08:55)
[2022-12-10] MEDS: PREGABALIN 75MG CAPSULE PO SCH ×2 (08:56→21:19)
[2022-12-10] MEDS: MIDODRINE HCL 5MG TABLET PO SCH ×3 (08:56→17:10)
[2022-12-10] MEDS: PHENAZOPYRIDINE HCL 100MG TABLET PO SCH ×3 (08:56→17:09)
[2022-12-10] MEDS: FERROUS SULFATE 325MG TABLET PO SCH ×2 (08:56→17:09)
[2022-12-10] MEDS: LEVOFLOXACIN 500MG TABLET PO SCH (11:11)
[2022-12-10] MEDS: LIDOCAINE 5% PATCH TOP SCH (17:10)
[2022-12-10 20:00] VITALS: BP 104/59
[2022-12-10] MEDS: SENNOSIDES/DOCUSATE SOD 8.6/50MG TABLET PO SCH (21:19)
[2022-12-11] MEDS: ALBUTEROL (0.083%) 2.5MG/3ML NEB HHN SCH (04:00)
[2022-12-11] MEDS: CYCLOBENZAPRINE 10MG TABLET PO SCH ×2 (06:00→06:48)
[2022-12-11] MEDS: HYDROCODONE/ACETAMINOPHEN 10/325MG TABLET PO PRN ×2 (06:58→10:53)
[2022-12-11 08:00] VITALS: BP 136/64
[2022-12-11] MEDS: FERROUS SULFATE 325MG TABLET PO SCH (10:42)
[2022-12-11] MEDS: PREGABALIN 75MG CAPSULE PO SCH (10:42)
[2022-12-11] MEDS: PANTOPRAZOLE SODIUM 40 MG/VIAL IV SCH (10:42)
[2022-12-11] MEDS: POLYETHYLENE GLYCOL 3350 (17GM) 1 DOSE PACK PO SCH (10:43)
[2022-12-11] MEDS: MIDODRINE HCL 5MG TABLET PO SCH (10:43)
[2022-12-11] MEDS: PHENAZOPYRIDINE HCL 100MG TABLET PO SCH (10:44)
[2022-12-11] MEDS: MULTIVITAMINS,THER W-MINERALS TABLET PO SCH (10:44)
[2022-12-11] MEDS: DICLOFENAC SODIUM 1% GEL 50GM TOP SCH (10:51)
[2022-12-11 10:52] VITALS: BP 136/64
[2022-12-11 10:53] VITALS: BP 136/64
== END 2022-12-11 12:30 | disposition home health service (06) | DRG 552 ==
PROVIDERS: ADMIT Psychiatry & Neurology Neurology; ATTEND Internal Medicine Geriatric Medicine
PROC: 5A09357 Assistance with Respiratory Ventilation, Less than 24 Consecutive Hours, Continuous Positive Airway Pressure (ICD-10-PCS; principal; 2022-11-29)
PROC: 5A09557 Assistance with Respiratory Ventilation, Greater than 96 Consecutive Hours, Continuous Positive Airway Pressure (ICD-10-PCS; 2022-11-30)
PROC: 5A09357 Assistance with Respiratory Ventilation, Less than 24 Consecutive Hours, Continuous Positive Airway Pressure (ICD-10-PCS; 2022-12-09)
PROC: 5A09357 Assistance with Respiratory Ventilation, Less than 24 Consecutive Hours, Continuous Positive Airway Pressure (ICD-10-PCS; 2022-12-10)
DX: M47.26 Other spondylosis with radiculopathy, lumbar region (principal); M51.06 Intervertebral disc disorders with myelopathy, lumbar region; E46 Unspecified protein-calorie malnutrition; G95.20 Unspecified cord compression; N39.0 Urinary tract infection, site not specified; M51.16 Intervertebral disc disorders with radiculopathy, lumbar region; N18.9 Chronic kidney disease, unspecified; R32 Unspecified urinary incontinence; M48.061 Spinal stenosis, lumbar region without neurogenic claudication; M47.16 Other spondylosis with myelopathy, lumbar region; M43.16 Spondylolisthesis, lumbar region; I12.9 Hypertensive chronic kidney disease with stage 1 through stage 4 chronic kidney disease, or unspecified chronic kidney disease; G89.4 Chronic pain syndrome; G47.33 Obstructive sleep apnea (adult) (pediatric); F41.9 Anxiety disorder, unspecified; F32.A Depression, unspecified; E11.22 Type 2 diabetes mellitus with diabetic chronic kidney disease; E78.5 Hyperlipidemia, unspecified; D50.9 Iron deficiency anemia, unspecified; K59.04 Chronic idiopathic constipation; K21.9 Gastro-esophageal reflux disease without esophagitis; K59.09 Other constipation; J30.9 Allergic rhinitis, unspecified; R26.2 Difficulty in walking, not elsewhere classified; R00.0 Tachycardia, unspecified; M19.90 Unspecified osteoarthritis, unspecified site; I95.9 Hypotension, unspecified; N39.46 Mixed incontinence; M47.812 Spondylosis without myelopathy or radiculopathy, cervical region; Z98.1 Arthrodesis status; Z91.81 History of falling; Z88.0 Allergy status to penicillin; Z79.899 Other long term (current) drug therapy; Z79.82 Long term (current) use of aspirin; Z68.34 Body mass index [BMI] 34.0-34.9, adult
CPT/HCPCS: 36415; 72100; 80048; 80053; 81003; 82607; 82962; 83540; 83550; 85025; 87077; 87186; 93970; 94640; 94660; 97110; 97116; 97162; 97166; 97530; 97535; C1893; C9113; J1170; J2270; J7626